=== PATIENT | female | born 1965 | race Caucasian/White ===

== ENCOUNTER 2018-01-21 17:38 | Inpatient (IN) ==
[2018-01-21] MEDS ORDERED: Acetaminophen/Aspirin/Caffeine TABLET PO PRN (21:06)
[2018-01-21] MEDS ORDERED: *HR* Dextrose 50 % in Water (Syg) 50 ML SYRINGE IVP PRN (21:13)
[2018-01-21] MEDS ORDERED: Dextrose Gel 15 GM/37.5 ML TUBE PO PRN ×2 (21:13)
[2018-01-21] MEDS ORDERED: D5% in Water 1,000 ML IVC PRN (21:13)
[2018-01-21] MEDS: Ibuprofen 200 MG TABLET PO PRN (23:36)
[2018-01-22] MEDS: *HR* Heparin 5,000 UNIT/ML VIAL SQ SCH ×2 (05:37→17:20)
[2018-01-22] MEDS: cloNIDine HCl 0.1 MG TABLET PO SCH (08:50)
[2018-01-22] MEDS: Multivit/Ca/Min/Fe/FA 1 TAB TABLET PO SCH (08:50)
[2018-01-22] MEDS: *HR* GlipiZIDE 5 MG TABLET PO SCH (08:50)
[2018-01-22] MEDS: Insulin LISPRO 300 UNITS/3 ML VIAL SQ SCH ×4 (08:51→21:08)
[2018-01-22] MEDS: Aspirin 81 MG TAB.CHEW PO SCH (08:51)
[2018-01-22] MEDS ORDERED: Famotidine 20 MG TABLET PO ONE (09:21)
[2018-01-22] MEDS ORDERED: Ondansetron 4 MG/2 ML VIAL IVP PRN (09:45)
--- NOTE | 2018-01-22 14:52 | Internal Med History&Physical ---
Date of Encounter: 01/22/18 Time of Encounter: 14:49 Assessment and Plan (1) Cellulitis of right foot Current visit: Yes Status: Acute Right foot surgical suture line appears dry and intact. Minimal edema noted to right foot. Patient will continue on IV vancomycin. Has remained afebrile. (2) Insulin dependent type 2 diabetes mellitus Current visit: No Status: Chronic No acute issues. We will continue with fingersticks with sliding scale coverage. We will continue with current regimen of medication. We will have a goal of keeping blood glucose less than 170 to promote healing. No current issues with diabetic neuropathy. (3) Essential (primary) hypertension Current visit: Yes Status: Chronic Vital signs stable. We will continue with current medications. (4) Nausea & vomiting Current visit: Yes Status: Acute Patient with episode of nausea and vomiting this morning after breakfast. Patient states that she has been filling nauseated but has no known triggers for it. Patient was medicated with Zofran and appears relaxed at this time Qualifiers: Vomiting type: unspecified Vomiting Intractability: unspecified Qualified Code(s): R11.2 - Nausea with vomiting, unspecified Internal Medicine - H&P: HPI Chief complaint: Cellulitis Admitted From: Intrahospital Transfer Plans for Post Hospital Care: Home History of present illness: Ms. Hardwick is a 52 year old female who was admitted to an [facility] after having wound to her right foot that was caused by stepping on a needle. Patient states that she has diabetic neuropathy and was unaware she stepped on the needle. Patient was able to remove the needle but over the course of several days of oral antibiotics described by her PCP her wound continued to regress in infection. Patient was seen by infectious disease at [facility] where they performed a I&D with cultures showing MRSA growth. Patient was transferred this facility for continued IV antibiotic therapy. Right foot with an sutured incision to the ball of the foot which appears dry and intact. Kerlix dressing in place is dry and intact. Patient denies any current discomforts or shortness of breath. Patient did complain of nausea earlier in the day and was medicated. Past Med Surg Social Fam HX - Past Medical History Medical history: arthritis, cancer, diabetes, GERD, hyperlipidemia, hypertension Additional medical history: cervical cancer Psychiatric history: anxiety - Past Surgical History Surgical History: appendectomy, hysterectomy Additional surgical history: Right foot abcess / wound / infection - Social History Smoking Status: Current every day smoker Smokeless Tobacco Status: No Alcohol use: none Drug use: none - Family History Father Living Status: Hx Family Cardiac Disorders: Yes (HTN, RI) Hx Family Respiratory Disorders: Yes Hx Family Cancer: Yes (Lung Cancer) Hx Family GI Disorders: No Hx Family Endocrine Disorder: Yes (DM) Hx Family Neuromuscular Disorders: No Hx Family Neurologic Disorders: No Hx Family HEENT Disorders: No Hx Family Autoimmune Disorders: No Mother Living Status: Still Living Hx Family Cardiac Disorders: Yes (HTN, RI) Hx Family Respiratory Disorders: No Hx Family Cancer: No Hx Family GI Disorders: No Hx Family Endocrine Disorder: Yes (DM , Thyroid) Hx Family Neuromuscular Disorders: No Hx Family Neurologic Disorders: No Hx Family HEENT Disorders: No Hx Family Autoimmune Disorders: No Internal Medicine - H&P: Meds Ibuprofen [Advil] 200 mg PO Q6H PRN 12/21/16 [History] Simvastatin [Zocor] 40 mg PO HS 12/21/16 [History] Aspirin/Acetaminophen/Caffeine [Excedrin Migraine Caplet] 2 tab PO DAILY PRN 12/30 [History] Citalopram [CeleXA] 20 mg PO DAILY 01/17/18 [History] Mv W-Ca/Iron/FA/Lutein/Hrb#179 [Miguel Multivit For Women Caplet] 1 tab PO DAILY 01/17/18 [History] glipiZIDE [Glucotrol] 5 mg PO DAILY 01/17/18 [History] Aspirin 81 mg PO DAILY tab.chew 01/20/18 [Rx] Lisinopril [Zestril] 5 mg PO DAILY tablet 01/20/18 [Rx] cloNIDine HCl [CloNIDine HCl] 0.1 mg PO DAILY tablet 01/20/18 [Rx] Acetaminophen [Tylenol] 650 mg PO Q6H PRN 01/21/18 [History] 3 Allergy/AdvReac Type Severity Reaction Status Date / Time artifical sweetners Allergy Hives Uncoded 01/22/18 09:06 All Systems PM: A 10-system review of systems was performed and is negative for pertinent findings except as documented above in the HPI. - Constitutional Constitutional: as per HPI, no chills, no fever(s), no night sweats - EENT Eyes: no change in vision, no discharge, no pain, no photophobia Ears: no ear discharge, no ear pain, no tinnitus Nose, mouth and throat: no dysphagia, no nasal discharge, no neck pain, no sore throat - Cardiovascular Cardiovascular ROS IM: as per HPI, no chest pain, no diaphoresis, no dyspnea, no lightheadedness, no palpitations, no syncope - Respiratory Respiratory: as per HPI, no cough, no dyspnea, no wheezing, no excessive phlegm production - Gastrointestinal Gastrointestinal: no abdominal pain, no diarrhea, no hematemesis, no hematochezia, no melena, no nausea, no vomiting - Genitourinary Genitourinary: no change in urinary stream, no dysuria, no flank pain, no hematuria - Musculoskeletal Musculoskeletal ROS IM: as per HPI, no numbness, no tingling - Integumentary Integumentary IM: as per HPI, no rash, no unusual bruising - Neurological Neurological ROS: no confusion, no convulsions, no focal weakness, no numbness, no tingling, no tremor(s) - Hematologic/Lymphatic Hematologic/Lymphatic: no easy bruising - Constitutional Vitals: Temp Pulse Resp BP Pulse Ox 97.7 F 79 14 139/86 98 01/22/18 12:59 01/22/18 12:59 01/22/18 12:59 01/22/18 12:59 01/22/18 12:59 General appearance: Present: A&O X 3 - Head Head exam: Present: atraumatic, normocephalic - Eye Eye exam: Present: PERRL, conjuntiva pink, sclera anicteric Pupils: Present: PERRL - Neck Neck exam general surgery: Present: supple, trachea midline. Absent: lymphadenopathy - Respiratory Respiratory exam: Present: CTAB. Absent: accessory muscle use, rales, rhonchi, wheezes - Cardiovascular Cardiovascular exam: Present: RRR, +S1, +S2. Absent: diastolic murmur, gallop, rubs, systolic murmur - GI/Abdominal GI/Abdominal exam: Present: normal bowel sounds, soft, no peritoneal signs. Absent: distended, tenderness - Extremities Exam Extremities exam: Present: warm, radial pulses palpable and symmetrical. Absent : calf tenderness, cyanotic, pedal edema Additional comments: Patient was surgical suture line to the ball of her right foot which remains dry and intact. No erythema noted. Kerlix dressing in place which is dry and intact. Minimal edema. Patient with PICC line to right upper extremity with insertion site appearing healthy - Neurological Exam Neurological exam: Present: CN II-XII intact, oriented X3, no focal deficits. Absent: pronater drift, facial droop, speech deficit - Skin Skin exam: Present: dry, intact
[2018-01-22] MEDS: Ibuprofen 200 MG TABLET PO PRN (17:24)
[2018-01-22] MEDS: Acetaminophen 325 MG TABLET PO PRN (22:41)
[2018-01-23] MEDS: *HR* Heparin 5,000 UNIT/ML VIAL SQ SCH ×2 (06:57→17:16)
[2018-01-23 07:17] LABS: Basophils # 0.1 K/mcL (0.0-0.2); Basophils % 0.7 %; Eosinophils # 0.3 K/mcL (0.0-0.6); Eosinophils % 3.1 %; Hematocrit 28.6 % (35.3-44.9); Hemoglobin 9.6 g/dL (11.5-15.4); Immature Granulocytes % 0.3 % (0-4); Lymphocytes # 2.7 K/mcL (0.6-4.6); Lymphocytes % 26.1 %; Mean Corpuscular HGB Conc 33.6 g/dL (31.6-35.5); Mean Corpuscular Hemoglobin 29.8 pg (28.0-33.3); Mean Corpuscular Volume 88.8 fL (83.0-100.0); Mean Platelet Volume 9.6 fL (9.4-12.4); Monocytes # 0.8 K/mcL (0.0-1.3); Monocytes % 8.3 %; Neutrophils # 6.3 K/mcL (1.6-8.9); Platelet Count 482 K/mcL (140-400); Red Blood Count 3.22 M/mcL (3.82-4.97); Red Cell Distribution Width 12.4 % (11.5-14.5); Segmented Neutrophils % 61.5 %
[2018-01-23 07:32] LABS: Albumin 3.1 g/dL (3.5-5.7); Albumin/Globulin Ratio 1.1 (1.1-2.2); Bilirubin,Total 0.3 mg/dL (0.3-1.0); Calcium 9.3 mg/dL (8.6-10.3); Globulin 2.9 g/dL (2.4-3.5); Magnesium 1.6 mg/dL (1.6-2.6); Potassium 3.7 mEq/L (3.5-5.1)
[2018-01-23] MEDS: Multivit/Ca/Min/Fe/FA 1 TAB TABLET PO SCH (07:45)
[2018-01-23] MEDS: cloNIDine HCl 0.1 MG TABLET PO SCH (07:45)
[2018-01-23] MEDS: *HR* GlipiZIDE 5 MG TABLET PO SCH (07:45)
[2018-01-23] MEDS: Aspirin 81 MG TAB.CHEW PO SCH (07:45)
[2018-01-23] MEDS: Insulin LISPRO 300 UNITS/3 ML VIAL SQ SCH ×4 (07:46→21:49)
--- NOTE | 2018-01-23 10:12 | Internal Med Progress Note ---
Date of Encounter: 01/23/18 Time of Encounter: 10:09 - Assessment and plan (1) Cellulitis of right foot Current Visit: Yes Status: Acute Assessment and plan: No acute issues. Right foot surgical incision appears intact with no drainage noted. Patient continues on vancomycin. Yesterday's troth was elevated and vancomycin is now reduced to daily dosing. Will continue to monitor serum trough levels and adjust. Creatinine 1.34. Patient denies any pain to surgical site. Patient with diabetic neuropathy. We will continue with daily dressing changes as ordered from wound care. (2) Insulin dependent type 2 diabetes mellitus Current Visit: No Status: Chronic Assessment and plan: No acute issues. Patient's glucose levels have been mostly less than 150. Goal of keeping glucose less than 70 healing. We will continue with fingersticks and coverage with sliding scale. We will continue with patient's current medication regimen. (3) Essential (primary) hypertension Current Visit: Yes Status: Chronic Assessment and plan: Vital signs are stable. We will continue with current medications. - Time Spent With Patient less than 15 minutes - Subjective Interval history: Patient appears relaxed and currently denies any discomforts or shortness of breath. Patient states that she was able to ambulate throughout the unit without difficulty. Patient states that her pain is well-controlled due to her neuropathy. Denies any further nausea - Constitutional Vitals: Temp Pulse Resp BP Pulse Ox 97.7 F 71 16 162/83 98 01/23/18 08:58 01/23/18 08:58 01/23/18 08:58 01/23/18 08:58 01/23/18 08:58 General appearance: Present: A&O X 3, pleasant Exam: . - Head Head exam: Present: atraumatic, normocephalic - Eye Eye exam: Present: PERRL, conjuntiva pink, sclera anicteric Pupils: Present: PERRL - Neck Neck exam general surgery: Present: supple, trachea midline. Absent: lymphadenopathy - Respiratory Respiratory exam: Present: CTAB. Absent: accessory muscle use, rales, rhonchi, wheezes - Cardiovascular Cardiovascular exam: Present: RRR, +S1, +S2. Absent: diastolic murmur, gallop, rubs, systolic murmur - GI/Abdominal GI/Abdominal exam: Present: normal bowel sounds, soft, no peritoneal signs. Absent: distended, tenderness - Extremities Exam Extremities exam: Present: warm, radial pulses palpable and symmetrical. Absent : calf tenderness, cyanotic, pedal edema Additional comments: Right foot with Kerlix dressing that is dry and intact. Surgical incision from I&D to the right ball of the foot remains intact with no erythema noted. Right upper arm PICC line with insertion site appearing healthy. - Neurological Exam Neurological exam: Present: CN II-XII intact, no focal deficits. Absent: pronater drift, facial droop, speech deficit Additional comments: Patient remains pleasantly confused and oriented to name only. Able to answer simple questions and follow simple commands appropriately but comes confused with complex task. Patient has been cooperative. No focal neurological deficits noted. - Skin Skin exam: Present: dry, intact Internal Medicine: Result - Labs CBC & Chem 7: 01/23/18 06:55 01/23/18 06:55 Labs: Short CBC 01/23/18 Range/Units 06:55 WBC 10.2 (4.3-11.1) K/mcL Hgb 9.6 L (11.5-15.4) g/dL Hct 28.6 L (35.3-44.9) % Plt Count 482 H (140-400) K/mcL Neutrophils # 6.3 (1.6-8.9) K/mcL BMP 01/23/18 06:55 Sodium 140 Potassium 3.7 Chloride 108 H Carbon Dioxide 26 BUN 12 Creatinine 1.34 H Glucose 159 H Calcium 9.3 Liver Function 01/23/18 Range/Units 06:55 Total Bilirubin 0.3 (0.3-1.0) mg/dL AST 13 (13-39) Units/L ALT 16 (7-52) Units/L Alkaline Phosphatase 110 H (34-104) Units/L Albumin 3.1 L (3.5-5.7) g/dL Consult Discharge Plan - Plan Referrals: Pb Sharma Jr, M[employer]ALE OFFICER [Primary Care Provider] -
[2018-01-23] MEDS: Ibuprofen 200 MG TABLET PO PRN (14:13)
[2018-01-23] MEDS: Acetaminophen 325 MG TABLET PO PRN (21:33)
[2018-01-24] MEDS: *HR* Heparin 5,000 UNIT/ML VIAL SQ SCH ×2 (06:48→17:13)
[2018-01-24] MEDS: Ibuprofen 200 MG TABLET PO PRN (06:51)
[2018-01-24 07:32] LABS: Blood Urea Nitrogen 12 mg/dL (6-20)
[2018-01-24] MEDS: Aspirin 81 MG TAB.CHEW PO SCH (07:51)
[2018-01-24] MEDS: Multivit/Ca/Min/Fe/FA 1 TAB TABLET PO SCH (07:51)
[2018-01-24] MEDS: *HR* GlipiZIDE 5 MG TABLET PO SCH (07:51)
[2018-01-24] MEDS: cloNIDine HCl 0.1 MG TABLET PO SCH (07:51)
[2018-01-24] MEDS: Insulin LISPRO 300 UNITS/3 ML VIAL SQ SCH ×3 (07:55→16:53)
[2018-01-24 08:07] VITALS: BP 148/86
[2018-01-24] MEDS ORDERED: Vancomycin 1 EACH in EMPTY BAG 1 EACH IVPB SCH (09:00)
--- NOTE | 2018-01-24 10:52 | Internal Med Progress Note ---
Date of Encounter: 01/24/18 Time of Encounter: 10:50 - Assessment and plan (1) Cellulitis of right foot Current Visit: Yes Status: Acute Assessment and plan: No acute issues. Right foot surgical incision appears intact with no drainage noted. Patient continues on vancomycin, with today's trough remaining elevated at 18. Creatinine was 1.43, which is up from 1.34. Patient was reduced to daily dosing 2 days ago on vancomycin. Will continue to monitor serum trough levels and adjust. Patient denies any pain to surgical site. Patient with diabetic neuropathy. We will continue with daily dressing changes as ordered from wound care. (2) Insulin dependent type 2 diabetes mellitus Current Visit: No Status: Chronic Assessment and plan: No acute issues. Patient's glucose levels have been mostly less than 150. Goal of keeping glucose less than 170 to promote healing. We will continue with fingersticks and coverage with sliding scale. We will continue with patient's current medication regimen. (3) Essential (primary) hypertension Current Visit: Yes Status: Chronic Assessment and plan: Vital signs are stable. We will continue with current medications. - Time Spent With Patient less than 15 minutes - Subjective Interval history: Patient appears relaxed and currently denies any discomforts or shortness of breath. Patient states that she was able to ambulate throughout the unit without difficulty. Patient states that her pain is well-controlled due to her neuropathy. Patient has been verbalizing desire to be discharged to home and to follow-up in outpatient IV therapy for antibiotic infusions. Today's vancomycin trough remains elevated and patient's creatinine has bumped up to 1.43. - Constitutional Vitals: Temp Pulse Resp BP Pulse Ox 97.8 F 72 16 148/86 97 01/24/18 08:06 01/24/18 08:06 01/23/18 20:11 01/24/18 08:06 01/24/18 08:06 General appearance: Present: A&O X 3, pleasant - Head Head exam: Present: atraumatic, normocephalic - Eye Eye exam: Present: PERRL, conjuntiva pink, sclera anicteric Pupils: Present: PERRL - Neck Neck exam general surgery: Present: supple, trachea midline. Absent: lymphadenopathy - Respiratory Respiratory exam: Present: CTAB. Absent: accessory muscle use, rales, rhonchi, wheezes - Cardiovascular Cardiovascular exam: Present: RRR, +S1, +S2. Absent: diastolic murmur, gallop, rubs, systolic murmur - GI/Abdominal GI/Abdominal exam: Present: normal bowel sounds, soft, no peritoneal signs. Absent: distended, tenderness - Extremities Exam Extremities exam: Present: warm, radial pulses palpable and symmetrical. Absent : calf tenderness, cyanotic, pedal edema Additional comments: Right foot with dressing dry and intact. Patient has surgical suture line to the bald foot which remains dry and intact with no erythema noted. - Neurological Exam Neurological exam: Present: CN II-XII intact, oriented X3, no focal deficits. Absent: pronater drift, facial droop, speech deficit - Skin Skin exam: Present: dry, intact Internal Medicine: Result - Labs CBC & Chem 7: 01/23/18 06:55 01/24/18 07:15 Labs: BMP 01/24/18 01/24/18 07:15 07:15 BUN 12 Creatinine 1.42 H Consult Discharge Plan - Plan Referrals: Pb Sharma Jr, CNP [Primary Care Provider] - Jenna Estrada CNP [Advanced Practice Nurse] - 02/05/18 9:25 am
--- NOTE | 2018-01-24 16:39 | Discharge Summary ---
- NOTES TO OUTPATIENT PROVIDER Notes to Outpatient Provider: Vancomycin, weekly labs will need to be followed. Date of Encounter: 01/24/18 Time of Encounter: 16:36 - Discharge Diagnosis (1) Cellulitis of right foot Priority: Primary Status: Acute Comments: Plan is for a full 6 weeks of antibiotics. She is currently receiving vancomycin which will be dosed by pharmacy. She would like to go home and because she is able to get this daily as an outpatient at the hospital, she will be discharged. She has follow-up on February 03 with infectious disease and needs to follow-up with her surgeon, as well. She had I&D at the second distal metatarsal phalangeal area which is sutured and well-healed without sign of cellulitis, currently. (2) Hyperlipidemia Priority: Secondary Status: Chronic Comments: Stable on home regimen. Qualifiers: Hyperlipidemia type: other hyperlipidemia Qualified Code(s): E78.4 - Other hyperlipidemia (3) Hypertension Priority: Secondary Status: Chronic Comments: Again, stable on home regimen. Qualifiers: Hypertension type: essential hypertension Qualified Code(s): I10 - Essential (primary) hypertension (4) GERD (gastroesophageal reflux disease) Priority: Secondary Status: Chronic Comments: Clinically stable. We will continue home regimen and follow. Qualifiers: Esophagitis presence: esophagitis presence not specified Qualified Code(s) : K21.9 - Gastro-esophageal reflux disease without esophagitis (5) Nausea & vomiting Priority: Secondary Status: Acute Comments: This is somewhat better and has been a problem for the last couple of days. Qualifiers: Vomiting type: unspecified Vomiting Intractability: intractable Qualified Code(s): R11.2 - Nausea with vomiting, unspecified (6) SHANTHI (acute kidney injury) Priority: Secondary Status: Acute Comments: Will need to watch carefully on a regular basis but will defer to pharmacy as vancomycin levels will be monitored by them. (7) Insulin dependent type 2 diabetes mellitus Priority: Secondary Status: Chronic Comments: Apparently, the patient was not taking enough metformin at home and will increase this dose. She does not follow sugars carefully and we have reinforced this, while here. Will defer to her primary care provider. (8) Tobacco abuse Priority: Secondary Status: Acute Comments: We have encouraged her to totally quit. She states that she is down to only a half pack or less and thinks this is pretty good. I spent a long time discussing this with her and she defers, not wanting nicotine patch, etc. (9) DVT prophylaxis Priority: Secondary Status: Acute Comments: She tells me that she is going to be walking, and a walking boot and that she will be active. I enforced that this is likely not to cause her DVT but should she have any symptoms or problems, she should get this checked out immediately at the emergency room. With this in mind and with these instructions, deep venous thrombosis medical therapy is not indicated. Hospital course: Ms. Hardwick is a 52 year old female who was in her usual state of health until about 2 weeks ago when she had a right needle that entered her right foot, distally. She tried to treat this with topical potato applications and eventually saw her primary care physician who gave her antibiotics. She continued to have drainage and when it worsened, she presented to [facility]. She underwent incision and drainage and was found to have MRSA and possible osteomyelitis in her second toe area, she was placed on vancomycin for 6 weeks. She is only receiving this daily and will apparently only get this daily, throughout the course. With this in mind, she would prefer to go home and she assessed discharge to outpatient Hospital antibiotic therapy. Her course was only remarkable for nausea couple of mornings but this resolved. Otherwise, she would like to be outside and at home. It should be noted that her renal function was mildly impaired upon arrival and worsened while she was here. This will need to be followed closely. Discharge discussed with: patient Time spent discussing smoking cessation with patient: 3 to 10 minutes - Time Spent with Patient Total time spent providing and/or coordinating discharge services: - Discharge Medications Prescriptions: Vancomycin/0.9 % Sod Chloride [Vanco 1.25 gm/250 ml-0.9% NaCl] 1.25 gm IV DAILY #39 plast..bag Home Medications: Ibuprofen [Advil] 200 mg PO Q6H PRN 12/21/16 [History] Simvastatin [Zocor] 40 mg PO HS 12/21/16 [History] Aspirin/Acetaminophen/Caffeine [Excedrin Migraine Caplet] 2 tab PO DAILY PRN 12/30 [History] Citalopram [CeleXA] 20 mg PO DAILY 01/17/18 [History] Mv W-Ca/Iron/FA/Lutein/Hrb#179 [Miguel Multivit For Women Caplet] 1 tab PO DAILY 01/17/18 [History] glipiZIDE [Glucotrol] 5 mg PO DAILY 01/17/18 [History] Aspirin 81 mg PO DAILY tab.chew 01/20/18 [Rx] Lisinopril [Zestril] 5 mg PO DAILY tablet 01/20/18 [Rx] cloNIDine HCl [CloNIDine HCl] 0.1 mg PO DAILY tablet 01/20/18 [Rx] Acetaminophen [Tylenol] 650 mg PO Q6H PRN 01/21/18 [History] Vancomycin/0.9 % Sod Chloride [Vanco 1.25 gm/250 ml-0.9% NaCl] 1.25 gm IV DAILY #39 plast..bag 01/24/18 [Rx] Allergies/Adverse Reactions: 3 Allergy/AdvReac Type Severity Reaction Status Date / Time artificial sweeteners Allergy Hives Uncoded 01/23/18 10:02 Date of admission: 01/21/18 20:28 Primary care physician: Pb Sharma Jr, BUGGYMAN Discharging clinician: Jaden Dominique Anticipated date of discharge: 01/24/18 - Constitutional Vitals: Temp Pulse Resp BP Pulse Ox 97.8 F 72 16 148/86 97 01/24/18 08:06 01/24/18 08:06 01/23/18 20:11 01/24/18 08:06 01/24/18 08:06 General appearance: Present: pleasant Exam: Examination: (Except as mentioned above): General: In no apparent distress. Alert and oriented 3. Nondiaphoretic. Head: Atraumatic and normocephalic. Respiratory: No use of accessory muscles. Lungs are clear throughout. Normal airflow. Cardiovascular: Regular rate and rhythm without murmur appreciated. Abdomen: Bowel sounds are normal. No hepatosplenomegaly mass or tenderness appreciated. Obese and therefore difficult to palpate deeply. Extremities: No cyanosis clubbing or edema. There is no cord or calf tenderness. Right lower extremity is mildly atrophic versus left. Skin: Warm and non-diaphoretic with no new lesions noted. The right foot is wrapped and not undressed at this time. There is no change, clinically. - Patient Status Disposition: Home, Self-Care - Discharge Instructions Instructions: Vancomycin (Injection), Wound Infection (DC), Peripherally Inserted Central Catheters and Midline Catheters (DC) Follow Up With: Pb Sharma Jr, CNP [Primary Care Provider] - 01/29/18 2:30 pm Jenna Estrada CNP [Advanced Practice Nurse] - 02/05/18 9:20 am Josh Richards DPM [Partnered Physician] - 02/04/18 9:15 am Additional Instructions: Follow-up appointments: If there is not an appointment listed below, please call your physician and schedule a follow-up appointment. If you have congestive heart failure and your symptoms return, make an appointment with your physician. Medication List: Carry an up to date list of medications you are taking at all time. We have given you an updated medication list including any new medications that you have been prescribed. Please provide that list to your primary provider Symptoms: If your condition changes or you experience any of the following symptoms, notify your physician immediately: Unusual or worsening pain, fever, persistent nausea and vomiting, bleeding, increase in swelling (especially in your legs), sudden weight gain, extreme dizziness, chest pain, increased drainage or redness from a wound or incision. Go to the emergency department if you experience a problem with breathing. Weights: If you have a history of swelling or shortness of breath, weigh yourself daily and notify your physician if you have a weight gain of two or more pounds in one day or 5 or more pounds in a week. If you experience any of the warning signs for stroke: Sudden numbness or weakness of the face, arm or leg; especially on one side of the body, sudden confusion, trouble speaking or understanding, sudden trouble seeing in one or both eyes, sudden trouble walking, dizziness, loss of balance or coordination, sudden sever headache with no cause; Call 911 or go to the emergency room. Stroke is a medical emergency. Some risk factors for stroke: Age, cigarette smoking, diabetes, excessive alcohol consumption, family history , high blood pressure, overweight, physical inactivity, prior stroke, heart attack, diagnosis of carotid artery stenosis or other artery disease. If you smoke, STOP: Smoking or tobacco use significantly increases your risk of heart and lung disease. Your chance of disease greatly increases if you continue to smoke. For more information, call the [place] tobacco quit line for smoking cessation QUIT-NOW ( )
[2018-01-24] MEDS ORDERED: Vancomycin 500 MG in 0.9 % Sodium Chloride Mini Bag 100 ML IVPB SCH (18:00)
== END 2018-01-24 20:34 | disposition home or self-care (01) | DRG 603 ==
LOC: INPGRE 20:28

== ENCOUNTER 2021-05-24 04:04 | Observation (INO) ==
[2021-05-24] MEDS ORDERED: 0.9 % Sodium Chloride 1,000 ML IV ONE ×3 (04:25→07:28)
[2021-05-24] MEDS ORDERED: Ondansetron 4 MG/2 ML VIAL IVP ONE (04:25)
[2021-05-24 04:47] LABS: Basophils % 0.3 %; Hematocrit 40.8 % (35.3-44.9); Hemoglobin 13.6 g/dL (11.5-15.4); Immature Granulocytes % 0.4 % (0-4); Lymphocytes # 1.5 K/mcL (0.6-4.6); Mean Corpuscular HGB Conc 33.3 g/dL (31.6-35.5); Monocytes # 0.8 K/mcL (0.0-1.3); Monocytes % 6.6 %; Neutrophils # 9.3 K/mcL (1.6-8.9); Platelet Count 608 K/mcL (140-400); Red Blood Count 4.69 M/mcL (3.82-4.97); Segmented Neutrophils % 79.7 %; White Blood Count 11.6 K/mcL (4.3-11.1)
[2021-05-24 04:52] LABS: Prothrombin Time 11.6 Seconds (9.4-12.1)
[2021-05-24 04:55] LABS: Activated Partial Thrombo Time 33.6 Seconds (26.0-36.0)
[2021-05-24 05:05] LABS: Alanine Aminotransferase 10 Units/L (7-52); Albumin 4.9 g/dL (3.5-5.7); Albumin/Globulin Ratio 1.3 (1.1-2.2); Alkaline Phosphatase 86 Units/L (34-104); Amylase 20 Units/L (29-103); Aspartate Amino Transferase 14 Units/L (13-39); BUN/Creatinine Ratio 20 (6-26); Bilirubin,Total 0.8 mg/dL (0.3-1.0); Blood Urea Nitrogen 21 mg/dL (6-20); Carbon Dioxide 25 mEq/L (23-29); Chloride 85 mEq/L (98-107); Globulin 3.7 g/dL (2.4-3.5); Glucose 483 mg/dL (70-105); Lipase 23 Units/L (11-82); Osmolality,Calculated 300 (280-300); Potassium 4.3 mEq/L (3.5-5.1); Sodium 133 mEq/L (136-145); Total Protein 8.6 g/dL (6.4-8.9); Troponin I < 0.03 ng/mL (< 0.04); eGFR For African Americans > 60 (> 60); eGFR For Non-African Americans 55 (> 60)
[2021-05-24] MEDS ORDERED: Insulin Human Regular 10 UNIT in 0.9 % Sodium Chloride 10 ML IV ONE ×2 (05:44→07:19)
[2021-05-24 06:13] LABS: VBG HCO3 27 mEq/L (21-27); VBG PCO2 43 mmHg (41-51); VBG PH 7.41 pH Units (7.32-7.42); VBG PO2 30 mmHg (25-50)
[2021-05-24] MEDS ORDERED: Famotidine 20 MG/2 ML VIAL IVP ONE (06:28)
[2021-05-24] MEDS ORDERED: *HR* Promethazine 25 MG/ML VIAL IM ONE (06:28)
[2021-05-24] MEDS ORDERED: cefTRIAXone 1,000 MG in 0.9 % Sodium Chloride Mini Bag 100 ML IVPB ONE (06:33)
[2021-05-24 07:42] LABS: Bilirubin,Urine Negative (Negative); Blood,Urine Negative (Negative); Clarity,Urine Clear (Clear); Color,Urine Yellow (Yellow); Glucose,Urine (UA) 500 mg/dL (Normal); Ketones,Urine >=160 mg/dL (Negative); Leukocyte Esterase,Urine Negative (Negative); Nitrite,Urine Negative (Negative); PH,Urine 7.5 pH Units (5.0-8.0); Protein,Urine 30 mg/dL (Neg-Trace); Urobilinogen,Urine Normal (Normal)
[2021-05-24 07:56] LABS: Budding Yeast,Urine Few per hpf (None Seen); Squamous Epithelial Cell,Urine Few per hpf (None-Few)
[2021-05-24] MEDS ORDERED: Ondansetron 4 MG/2 ML VIAL IVP PRN (08:04)
[2021-05-24] MEDS ORDERED: Acetaminophen 325 MG TABLET PO PRN (08:04)
[2021-05-24] MEDS ORDERED: Naloxone 0.4 MG/ML INJ IVP PRN (08:04)
[2021-05-24] MEDS ORDERED: *HR* Dextrose 50 % in Water (Syg) 50 ML SYRINGE IVP PRN (08:07)
[2021-05-24] MEDS ORDERED: D5% in Water 1,000 ML IVC PRN (08:07)
[2021-05-24] MEDS ORDERED: Dextrose Gel 15 GM/37.5 ML TUBE PO PRN ×2 (08:07)
[2021-05-24 08:12] LABS: BUN/Creatinine Ratio 21 (6-26); Blood Urea Nitrogen 18 mg/dL (6-20); Calcium 9.3 mg/dL (8.6-10.3); Carbon Dioxide 25 mEq/L (23-29); Chloride 96 mEq/L (98-107); Glucose 350 mg/dL (70-105); Magnesium 1.7 mg/dL (1.6-2.6); Osmolality,Calculated 298 (280-300); Phosphorous 1.8 mg/dL (2.7-4.5); Potassium 3.3 mEq/L (3.5-5.1); Sodium 136 mEq/L (136-145); eGFR For African Americans > 60 (> 60); eGFR For Non-African Americans > 60 (> 60)
[2021-05-24] MEDS ORDERED: Ringers Solution, Lactated 1,000 ML IVC ONE (08:57)
[2021-05-24] MEDS ORDERED: Insulin DETEMIR 100 UNIT/ML X5UNITS SUBQ SCH (09:00)
[2021-05-24] MEDS: lisinopriL 5 MG TABLET PO SCH (09:58)
[2021-05-24] MEDS: Cholecalciferol (D-3) 1,000 UNIT (25MCG) TABLET PO SCH (09:59)
[2021-05-24] MEDS: Multivit/Ca/Min/Fe/FA 1 TAB TABLET PO SCH (09:59)
[2021-05-24] MEDS: Gabapentin 100 MG CAPSULE PO SCH ×3 (09:59→21:01)
[2021-05-24] MEDS: Aspirin 81 MG TAB.CHEW PO SCH (09:59)
[2021-05-24] MEDS: Ringers Solution, Lactated 1,000 ML IVC SCH ×2 (11:31→15:40)
[2021-05-24] MEDS: Insulin LISPRO 300 UNITS/3 ML VIAL SUBQ SCH ×2 (12:24→18:06)
[2021-05-24 14:25] LABS: BUN/Creatinine Ratio 23 (6-26); Blood Urea Nitrogen 16 mg/dL (6-20); Calcium 8.5 mg/dL (8.6-10.3); Carbon Dioxide 25 mEq/L (23-29); Chloride 99 mEq/L (98-107); Glucose 243 mg/dL (70-105); Osmolality,Calculated 287 (280-300); Potassium 3.2 mEq/L (3.5-5.1); Sodium 134 mEq/L (136-145); eGFR For African Americans > 60 (> 60); eGFR For Non-African Americans > 60 (> 60)
[2021-05-24 15:16] LABS: Estimated Average Glucose 312 mg/dl; Hemoglobin A1C 12.5 %
[2021-05-24] MEDS ORDERED: Ringers Solution, Lactated 1,000 ML IVC SCH (18:15)
[2021-05-25 05:59] LABS: Hematocrit 31.9 % (35.3-44.9); Hemoglobin 10.4 g/dL (11.5-15.4); Mean Corpuscular HGB Conc 32.6 g/dL (31.6-35.5); Mean Corpuscular Hemoglobin 28.7 pg (28.0-33.3); Mean Corpuscular Volume 87.9 fL (83.0-100.0); Mean Platelet Volume 9.5 fL (9.4-12.4); Platelet Count 434 K/mcL (140-400); Red Blood Count 3.63 M/mcL (3.82-4.97); White Blood Count 11.7 K/mcL (4.3-11.1)
[2021-05-25 06:20] LABS: BUN/Creatinine Ratio 19 (6-26); Blood Urea Nitrogen 13 mg/dL (6-20); Calcium 8.7 mg/dL (8.6-10.3); Carbon Dioxide 28 mEq/L (23-29); Chloride 98 mEq/L (98-107); Glucose 150 mg/dL (70-105); Magnesium 1.6 mg/dL (1.6-2.6); Osmolality,Calculated 281 (280-300); Potassium 3.2 mEq/L (3.5-5.1); Sodium 134 mEq/L (136-145); eGFR For African Americans > 60 (> 60); eGFR For Non-African Americans > 60 (> 60)
[2021-05-25] MEDS ORDERED: 0.9 % Sodium Chloride 1,000 ML IV ONE (07:47)
[2021-05-25] MEDS ORDERED: *HR* Dextrose 50 % in Water (Syg) 50 ML SYRINGE IVP PRN (07:50)
[2021-05-25] MEDS ORDERED: D5% in Water 1,000 ML IVC PRN (07:50)
[2021-05-25] MEDS ORDERED: Dextrose Gel 15 GM/37.5 ML TUBE PO PRN ×2 (07:50)
[2021-05-25] MEDS ORDERED: 0.9 % Sodium Chloride 1,000 ML IVC SCH (08:00)
[2021-05-25] MEDS: Insulin DETEMIR 100 UNIT/ML X5UNITS SUBQ SCH ×2 (08:03→22:31)
[2021-05-25] MEDS: Aspirin 81 MG TAB.CHEW PO SCH (08:24)
[2021-05-25] MEDS: Cholecalciferol (D-3) 1,000 UNIT (25MCG) TABLET PO SCH (08:24)
[2021-05-25] MEDS: Gabapentin 100 MG CAPSULE PO SCH ×3 (08:24→22:50)
[2021-05-25] MEDS: lisinopriL 5 MG TABLET PO SCH (08:25)
[2021-05-25] MEDS: Multivit/Ca/Min/Fe/FA 1 TAB TABLET PO SCH (08:25)
[2021-05-25] MEDS: Insulin LISPRO 300 UNITS/3 ML VIAL SUBQ SCH ×3 (08:30→18:31)
[2021-05-25] MEDS ORDERED: 0.9 % Sodium Chloride w KCl 40 MEQ/1,000 ML MLS IVC SCH (10:30)
[2021-05-25] MEDS ORDERED: Insulin LISPRO 300 UNITS/3 ML VIAL SUBQ SCH ×2 (11:30→21:00)
[2021-05-25] MEDS: Nicotine 14 MG PATCH.TD24 TD SCH (14:11)
[2021-05-26] MEDS: Insulin LISPRO 300 UNITS/3 ML VIAL SUBQ SCH ×2 (05:19→08:47)
[2021-05-26 06:25] LABS: Hemoglobin 11.5 g/dL (11.5-15.4); Mean Corpuscular HGB Conc 32.9 g/dL (31.6-35.5); Mean Corpuscular Hemoglobin 28.8 pg (28.0-33.3); Mean Corpuscular Volume 87.5 fL (83.0-100.0); Mean Platelet Volume 9.6 fL (9.4-12.4); Platelet Count 471 K/mcL (140-400); Red Cell Distribution Width 12.5 % (11.5-14.5); White Blood Count 9.8 K/mcL (4.3-11.1)
[2021-05-26 07:07] LABS: Alanine Aminotransferase 9 Units/L (7-52); Albumin 3.6 g/dL (3.5-5.7); Albumin/Globulin Ratio 1.4 (1.1-2.2); Alkaline Phosphatase 58 Units/L (34-104); Aspartate Amino Transferase 11 Units/L (13-39); BUN/Creatinine Ratio 16 (6-26); Bilirubin,Total 0.5 mg/dL (0.3-1.0); Blood Urea Nitrogen 11 mg/dL (6-20); Calcium 9.2 mg/dL (8.6-10.3); Carbon Dioxide 27 mEq/L (23-29); Chloride 98 mEq/L (98-107); Globulin 2.5 g/dL (2.4-3.5); Glucose 219 mg/dL (70-105); Magnesium 1.7 mg/dL (1.6-2.6); Osmolality,Calculated 282 (280-300); Potassium 3.6 mEq/L (3.5-5.1); Sodium 133 mEq/L (136-145); Total Protein 6.1 g/dL (6.4-8.9); eGFR For African Americans > 60 (> 60); eGFR For Non-African Americans > 60 (> 60)
[2021-05-26 08:03] VITALS: O2SAT 100
[2021-05-26] MEDS: lisinopriL 5 MG TABLET PO SCH (09:39)
[2021-05-26] MEDS: Aspirin 81 MG TAB.CHEW PO SCH (09:39)
[2021-05-26] MEDS: Cholecalciferol (D-3) 1,000 UNIT (25MCG) TABLET PO SCH (09:39)
[2021-05-26] MEDS: Gabapentin 100 MG CAPSULE PO SCH (09:40)
[2021-05-26] MEDS: Multivit/Ca/Min/Fe/FA 1 TAB TABLET PO SCH (09:40)
[2021-05-26] MEDS: Nicotine 14 MG PATCH.TD24 TD SCH (09:40)
[2021-05-26 11:57] VITALS: BP 119/77; PULSE 82; RESP 18; TEMP 97.6
== END 2021-05-26 12:25 | disposition home or self-care (01) ==
LOC: EMEROOGRE 04:04 → INPGRE 04:04
PROVIDERS: ADMIT Family Medicine; ATTEND Family Medicine

== ENCOUNTER 2021-11-06 14:35 | Inpatient (IN) ==
[2021-11-06] MEDS ORDERED: Ondansetron ODT 4 MG TAB.RAPDIS SL PRN (14:42)
[2021-11-06] MEDS ORDERED: *HR* Dextrose 50 % in Water (Syg) 50 ML SYRINGE IVP PRN (14:51)
[2021-11-06] MEDS ORDERED: Dextrose 4 GM Chewable Tablets PO PRN ×2 (14:51)
[2021-11-06] MEDS ORDERED: D5% in Water 1,000 ML IVC PRN (14:51)
[2021-11-06] MEDS: Nystatin SUSP 5 ML UD.LIQ PO SCH ×2 (16:39→20:21)
[2021-11-06] MEDS: Gabapentin 100 MG CAPSULE PO SCH ×2 (16:39→20:21)
[2021-11-06] MEDS: Insulin LISPRO 300 UNITS/3 ML VIAL SUBQ SCH ×2 (16:40→20:22)
[2021-11-06] MEDS: *HR* HYDROcodone/Acet 5/325 mg TABLET PO PRN (17:03)
[2021-11-07] MEDS: *HR* HYDROcodone/Acet 5/325 mg TABLET PO PRN ×2 (04:41→20:28)
[2021-11-07 04:45] LABS: Basophils % 0.4 %; Eosinophils # 0.2 K/mcL (0.0-0.6); Eosinophils % 3.3 %; Hematocrit 32.2 % (35.3-44.9); Hemoglobin 10.5 g/dL (11.5-15.4); Immature Granulocytes % 0.1 % (0-4); Lymphocytes # 3.3 K/mcL (0.6-4.6); Lymphocytes % 45.6 %; Mean Corpuscular HGB Conc 32.6 g/dL (31.6-35.5); Mean Corpuscular Hemoglobin 28.8 pg (28.0-33.3); Mean Corpuscular Volume 88.5 fL (83.0-100.0); Mean Platelet Volume 9.8 fL (9.4-12.4); Monocytes # 0.8 K/mcL (0.0-1.3); Monocytes % 10.9 %; Neutrophils # 2.9 K/mcL (1.6-8.9); Platelet Count 451 K/mcL (140-400); Red Blood Count 3.64 M/mcL (3.82-4.97); Red Cell Distribution Width 13.5 % (11.5-14.5); Segmented Neutrophils % 39.7 %; White Blood Count 7.3 K/mcL (4.3-11.1)
[2021-11-07 04:59] LABS: BUN/Creatinine Ratio 18 (6-26); Blood Urea Nitrogen 15 mg/dL (6-20); Calcium 9.1 mg/dL (8.6-10.3); Carbon Dioxide 30 mEq/L (23-29); Chloride 100 mEq/L (98-107); Glucose 235 mg/dL (70-105); Osmolality,Calculated 284 (280-300); Potassium 4.4 mEq/L (3.5-5.1); Sodium 133 mEq/L (136-145); eGFR For African Americans > 60 (> 60); eGFR For Non-African Americans > 60 (> 60)
[2021-11-07] MEDS: *HR* Enoxaparin 40 MG/0.4 ML SYRINGE SQ SCH (06:10)
[2021-11-07] MEDS: Multivit/Ca/Min/Fe/FA 1 TAB TABLET PO SCH (08:40)
[2021-11-07] MEDS: lisinopriL 5 MG TABLET PO SCH (08:40)
[2021-11-07] MEDS: Cholecalciferol (D-3) 1,000 UNIT (25MCG) TABLET PO SCH (08:40)
[2021-11-07] MEDS: Gabapentin 100 MG CAPSULE PO SCH ×3 (08:40→20:28)
[2021-11-07] MEDS: Aspirin 81 MG TAB.CHEW PO SCH (08:40)
[2021-11-07] MEDS: Insulin LISPRO 300 UNITS/3 ML VIAL SUBQ SCH ×4 (08:41→20:00)
[2021-11-07] MEDS: Nystatin SUSP 5 ML UD.LIQ PO SCH ×4 (08:41→20:29)
[2021-11-08] MEDS: *HR* Enoxaparin 40 MG/0.4 ML SYRINGE SQ SCH (04:53)
[2021-11-08] MEDS: *HR* HYDROcodone/Acet 5/325 mg TABLET PO PRN ×2 (06:15→20:59)
[2021-11-08] MEDS: *HR* Metformin 500 MG TABLET PO SCH ×2 (08:54→17:11)
[2021-11-08] MEDS: Gabapentin 100 MG CAPSULE PO SCH ×3 (08:54→20:58)
[2021-11-08] MEDS: Cholecalciferol (D-3) 1,000 UNIT (25MCG) TABLET PO SCH (08:54)
[2021-11-08] MEDS: Nystatin SUSP 5 ML UD.LIQ PO SCH ×4 (08:54→21:00)
[2021-11-08] MEDS: Aspirin 81 MG TAB.CHEW PO SCH (08:54)
[2021-11-08] MEDS: Multivit/Ca/Min/Fe/FA 1 TAB TABLET PO SCH (08:54)
[2021-11-08] MEDS: lisinopriL 5 MG TABLET PO SCH (08:55)
[2021-11-08] MEDS: Insulin LISPRO 300 UNITS/3 ML VIAL SUBQ SCH ×4 (08:55→23:21)
[2021-11-09] MEDS: *HR* Enoxaparin 40 MG/0.4 ML SYRINGE SQ SCH (06:28)
[2021-11-09] MEDS: *HR* Metformin 500 MG TABLET PO SCH ×2 (08:35→16:49)
[2021-11-09] MEDS: *HR* HYDROcodone/Acet 5/325 mg TABLET PO PRN ×2 (08:36→16:48)
[2021-11-09] MEDS: Cholecalciferol (D-3) 1,000 UNIT (25MCG) TABLET PO SCH (08:36)
[2021-11-09] MEDS: Gabapentin 100 MG CAPSULE PO SCH ×3 (08:36→20:59)
[2021-11-09] MEDS: Multivit/Ca/Min/Fe/FA 1 TAB TABLET PO SCH (08:36)
[2021-11-09] MEDS: Insulin LISPRO 300 UNITS/3 ML VIAL SUBQ SCH ×4 (08:36→20:59)
[2021-11-09] MEDS: Nystatin SUSP 5 ML UD.LIQ PO SCH ×4 (08:36→20:58)
[2021-11-09] MEDS: Aspirin 81 MG TAB.CHEW PO SCH (08:37)
[2021-11-09] MEDS: lisinopriL 5 MG TABLET PO SCH (08:37)
[2021-11-09] MEDS: Sennosides 8.6 MG TABLET PO SCH ×2 (10:20→20:59)
[2021-11-09] MEDS: polyethylene glycoL 3350 17 GM POWD.PACK PO SCH (10:20)
[2021-11-09] MEDS ORDERED: Ibuprofen 600 MG TABLET PO PRN (16:24)
[2021-11-10] MEDS: *HR* HYDROcodone/Acet 5/325 mg TABLET PO PRN ×2 (00:08→08:43)
[2021-11-10] MEDS: *HR* Enoxaparin 40 MG/0.4 ML SYRINGE SQ SCH (06:29)
[2021-11-10 07:24] VITALS: BP 109/71; PULSE 88; RESP 14; TEMP 97.7; O2SAT 98
[2021-11-10] MEDS: Cholecalciferol (D-3) 1,000 UNIT (25MCG) TABLET PO SCH (08:38)
[2021-11-10] MEDS: Insulin LISPRO 300 UNITS/3 ML VIAL SUBQ SCH ×2 (08:39→12:02)
[2021-11-10] MEDS: lisinopriL 5 MG TABLET PO SCH (08:39)
[2021-11-10] MEDS: Aspirin 81 MG TAB.CHEW PO SCH (08:39)
[2021-11-10] MEDS: Nystatin SUSP 5 ML UD.LIQ PO SCH (08:39)
[2021-11-10] MEDS: Multivit/Ca/Min/Fe/FA 1 TAB TABLET PO SCH (08:39)
[2021-11-10] MEDS: Sennosides 8.6 MG TABLET PO SCH (08:39)
[2021-11-10] MEDS: Gabapentin 100 MG CAPSULE PO SCH (08:39)
[2021-11-10] MEDS: *HR* Metformin 500 MG TABLET PO SCH (08:40)
[2021-11-10] MEDS: polyethylene glycoL 3350 17 GM POWD.PACK PO SCH (08:40)
== END 2021-11-10 14:00 | disposition home or self-care (01) | DRG 689 ==
LOC: INPGRE 15:14
PROVIDERS: ADMIT Internal Medicine; ATTEND Family Medicine